=== PATIENT | male | born 1935 | race Hispanic/Latino ===

== ENCOUNTER 2017-08-17 08:50 | Outpatient (CLI) | payer MEDICARE, OTHER ==
[~2017-08-17 08:50] MED LIST: AMLO5TAB2 PO; ASPI-555 PO; ATOR20TA65 PO; CLOP75TA32 PO; FENO134C PO; FINA5TAB41 PO; FOLI0.8T22 PO; FURO80TA3 PO; GABA-529 PO; GLIP10TA9 PO; HUMLIS7525 SQ; INSU10VI4 SQ; LEVO25TA9 PO; LINA5TAB PO; METO-408 PO; MV-M1TAB20 PO; POTA-9 PO; RANI300T4 PO; SERT25TA5 PO
[2017-08-17 13:44] VITALS: BP 116/64
== END 2017-09-29 10:14 ==
LOC: WHH 08:50
PROVIDERS: ATTEND Podiatrist Foot & Ankle Surgery
DX: E11.621 Type 2 diabetes mellitus with foot ulcer (principal); L97.511 Non-pressure chronic ulcer of other part of right foot limited to breakdown of skin; I25.10 Atherosclerotic heart disease of native coronary artery without angina pectoris; K21.9 Gastro-esophageal reflux disease without esophagitis; E11.22 Type 2 diabetes mellitus with diabetic chronic kidney disease; I13.0 Hypertensive heart and chronic kidney disease with heart failure and stage 1 through stage 4 chronic kidney disease, or unspecified chronic kidney disease; N18.4 Chronic kidney disease, stage 4 (severe); I50.43 Acute on chronic combined systolic (congestive) and diastolic (congestive) heart failure; E78.4 Other hyperlipidemia; E11.69 Type 2 diabetes mellitus with other specified complication; M86.8X7 Other osteomyelitis, ankle and foot; E11.51 Type 2 diabetes mellitus with diabetic peripheral angiopathy without gangrene; M19.90 Unspecified osteoarthritis, unspecified site; E11.65 Type 2 diabetes mellitus with hyperglycemia; I25.2 Old myocardial infarction; Z85.038 Personal history of other malignant neoplasm of large intestine; Z85.46 Personal history of malignant neoplasm of prostate; Z87.891 Personal history of nicotine dependence; Z95.1 Presence of aortocoronary bypass graft; Z79.4 Long term (current) use of insulin; Z99.2 Dependence on renal dialysis
CPT/HCPCS: A4450; G0463